=== PATIENT | male | born 1955 | race Caucasian/White ===

== ENCOUNTER 2024-12-03 11:00 | Outpatient (CLI) | payer MEDICARE, SELFPAY ==
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
== END 2024-12-03 11:01 | disposition home or self-care (01) ==
LOC: CCC 14:36
PROVIDERS: PCP Nurse Practitioner Family; Visit Provider Nurse Practitioner Family
DX: B20 Human immunodeficiency virus [HIV] disease (principal); Z79.899 Other long term (current) drug therapy; I10 Essential (primary) hypertension; E78.5 Hyperlipidemia, unspecified; Q23.81 Bicuspid aortic valve; I44.7 Left bundle-branch block, unspecified
CPT/HCPCS: 99205

== ENCOUNTER 2024-12-03 13:14 | Outpatient (CLI) | payer MEDICARE, SELFPAY ==
[2024-12-03 13:12] LABS: Abs Immature Grans 0.01 10^3/uL (0.0-0.06); Absolute Basophil Count 0.04 10^3/uL (0.0-0.2); Absolute Eosinophil Count 0.05 10^3/uL (0.0-0.7); Absolute Lymphocyte Count 1.49 10^3/uL (1.2-3.4); Absolute Monocyte Count 0.64 10^3/uL (0.1-0.8); Absolute Neutrophil Count 2.78 10^3/uL (1.2-6.7); Basophils % 0.8 %; HCT 44.5 % (40.0-50.0); Immature Grans % 0.2 %; Lymphocytes % 29.7 %; MCH 31.3 pg (27.0-33.0); MCHC 33.7 % (32.0-36.0); MCV 93 fL (80-95); MPV 9.9 fL (8.0-11.0); Monocytes % 12.8 %; Neutrophils % 55.5 %; Platelet Count 141 10^3/uL (130-400); RDW 13.3 % (11.8-14.1); RDW-SD 45.1 fL; WBC 5.01 10^3/uL (4.4-10.8)
[2024-12-03 13:22] LABS: Hemoglobin A1C 5.8 % (<5.7)
[2024-12-03 13:57] LABS: ALT 41 U/L (16-63); AST 30 U/L (15-37); Albumin 4.1 g/dL (3.4-5.0); Alkaline Phosphatase 84 U/L (46-116); Anion Gap 7.1 mmol/L (3-11); BUN 19 mg/dL (7-18); Bilirubin, Total 0.5 mg/dL (0.2-1.0); CO2 29.9 mmol/L (21.0-32.0); CREATININE 1.3 mg/dL (0.70-1.30); Calcium 9.6 mg/dL (8.5-10.1); Chloride 104 mmol/L (98-107); GGT 18 U/L (15-85); Glucose 96 mg/dL (74-106); Potassium 4.4 mmol/L (3.5-5.1); Sodium 141 mmol/L (136-145)
[2024-12-04 16:11] LABS: 4/8 Ratio 0.64 (>=0.90); Absolute CD3 997 Cells/uL (840-2669); Absolute CD8 615 Cells/uL (154-1097); CD3 56 % (56-84); CD4 22 % (31-64); CD8 34 % (9-39)
[2024-12-06 15:15] LABS: HIV 1 RNA Qualitative Undetected Copys/mL (Undetected)
== END 2024-12-03 13:15 | disposition home or self-care (01) ==
LOC: LBO 13:19
PROVIDERS: PCP Nurse Practitioner Family; Visit Provider Nurse Practitioner Family
DX: B20 Human immunodeficiency virus [HIV] disease (principal); Z79.899 Other long term (current) drug therapy
CPT/HCPCS: 36415; 80053; 87536; 82977; 83036; 85025; 86359; 86360

== ENCOUNTER 2025-04-10 10:53 | Outpatient (CLI) | payer MEDICARE, SELFPAY ==
[2025-04-10 12:41] LABS: Calculated LDL 110 mg/dL (<100); Cholesterol 182 mg/dL (<200); HDL Cholesterol 48 mg/dL (>or=40); Triglyceride 122 mg/dL (<150)
[2025-04-10 19:56] LABS: PSA, Screening 1.6 ng/mL (<=6.5)
== END 2025-04-10 10:54 | disposition home or self-care (01) ==
LOC: LBO 10:53
PROVIDERS: Nurse Practitioner Family; PCP Nurse Practitioner Family; Visit Provider Nurse Practitioner Family
DX: Z13.6 Encounter for screening for cardiovascular disorders (principal); Z12.5 Encounter for screening for malignant neoplasm of prostate; B20 Human immunodeficiency virus [HIV] disease
CPT/HCPCS: 36415; 80061; 84153; 87536